=== PATIENT | male | born 1970 | race Caucasian/White ===

== ENCOUNTER 2019-01-27 12:02 | Emergency (ER) | payer OTHER ==
[~2019-01-27] VITALS: Ht 172.7 cm; Wt 61.2 kg
--- NOTE | 2019-01-27 12:20 | NUR ---
Dr Santos at the bedside for MSE.
[2019-01-27] MEDS ORDERED: HYDROCODONE/APAP 5-325MG TABLET ONE (12:26)
[2019-01-27] MEDS ORDERED: HYDROCODONE/APAP 5-325MG TABLET PO ONE (12:30)
[2019-01-27] MEDS ORDERED: TDAP DIPH,PERTUSS,TET VAC/PF 0.5 ML DISP.SYRIN IM ONE ×2 (12:45→13:11)
[2019-01-27] MEDS ORDERED: NEOMY/BACITRA/POLYMYXIN B OINT UD PACKET TP ONE ×2 (12:45→13:12)
[2019-01-27] MEDS ORDERED: LIDOCAINE 1%-EPI 1:100,000 20 ML VIAL IJ ONE (12:45)
--- NOTE | 2019-01-27 13:40 | NUR ---
Inncontinent care provided. Pt has no c/o pain.
--- NOTE | 2019-01-27 13:43 | NUR ---
Placed a call to [facility] for pt's transfer. ETA 45 min, and trip #[id number].
--- NOTE | 2019-01-27 14:29 | NUR ---
Patient is resting comfortably in bed with eyes closed, NAD noted.
[2019-01-27 15:34] VITALS: BP 130/80
--- NOTE | 2019-01-27 15:39 | NUR ---
Report given to application chemist transfering Pt. All belongings sent w/ pt, including pt's wheelchair. Pt left ER in stable condition.
== END 2019-01-27 15:51 | disposition home or self-care (01) ==
LOC: ER 12:02
DX: S01.112A Laceration without foreign body of left eyelid and periocular area, initial encounter (principal); W22.8XXA Striking against or struck by other objects, initial encounter; Y93.89 Activity, other specified; Y92.89 Other specified places as the place of occurrence of the external cause; Y99.8 Other external cause status
CPT/HCPCS: 90715; A4663

== ENCOUNTER 2020-10-09 12:17 | Emergency (ER) | payer MEDICAID, OTHER ==
[~2020-10-09] VITALS: Ht 167.6 cm; Wt 67.1 kg
--- NOTE | 2020-10-09 12:24 | NUR ---
Patient brought in by [facility] for altered mental status, patient stated that it is the year 2019 but doesnt know the month but is oriented to self
--- NOTE | 2020-10-09 12:28 | NUR ---
UNABLE TO OBTAIN PT's HOME MEDICATION NAMES AND DOSAGES.
--- NOTE | 2020-10-09 12:48 | NUR ---
Patient taken to radiology department for CT
[2020-10-09 12:57] LABS: *BLOOD, URINE NEGATIVE (NEGATIVE); *CLARITY,URINE SLIGHTLY CLOUDY (CLEAR); *COLOR,URINE AMBER (YELLOW); *KETONES,URINE TRACE (NEGATIVE); LEUKOCYTE ESTERASE ,URINE NEGATIVE (NEGATIVE); NITRITE, URINE NEGATIVE (NEGATIVE); UGLUCOSE NEGATIVE (NEGATIVE)
[2020-10-09 13:04] LABS: *BILIRUBIN,URIN 2+ (NEGATIVE)
[2020-10-09 13:07] LABS: MUCUS,URINE MODERATE /LPF (0-FEW)
[2020-10-09 13:09] LABS: BACTERIA,URINE NONE SEEN /HPF (NONE SEEN); RBC,URINE NONE SEEN /HPF (0-3); SQUAMOUS EPITHELIAL CELL,UR FEW /HPF (NONE SEEN); WBC,URINE NONE SEEN /HPF (0-3)
[2020-10-09 13:46] LABS: BILIRUBIN,DIRECT 0.3 mg/dL (0.0-0.2); BILIRUBIN,TOTAL 1.4 mg/dL (0.2-1.0); CREATININE 1.1 mg/dL (0.6-1.3); POTASSIUM 3.9 mmol/L (3.5-5.1); TOTAL PROTEIN, SERUM 7.8 g/dL (6.4-8.2)
[2020-10-09 13:51] LABS: HEMATOCRIT 48.4 % (36.7-47.1); MEAN CORPUSCULAR HEMOGLOBIN 27.8 uug (23.8-33.4); MEAN CORPUSCULAR VOLUME 85.5 fL (73.0-96.2); PLATELET COUNT (AUTO) 293 K/uL (152-348)
--- NOTE | 2020-10-09 14:03 | NUR ---
Spinal tap procedure done by MD Valenzuela, patient tolerated procedure well
[2020-10-09] MEDS ORDERED: IV NORMAL SALINE 1000 ML BAG IV ONE (14:15)
[2020-10-09] MEDS ORDERED: VANCOMYCIN IV 1,000 MG in IV DEXTROSE 5% 250 ML IV ONE (14:30)
[2020-10-09] MEDS ORDERED: CEFTRIAXONE 2 G in IV DEXTROSE 5% 100 ML IV ONE (14:30)
[2020-10-09] MEDS ORDERED: VANCOMYCIN IV 200 ML ONE (15:14)
[2020-10-09] MEDS ORDERED: CEFTRIAXONE 1 G VIAL ONE (15:14)
[2020-10-09 16:08] LABS: CSF PROTEIN 52 mg/dL (15-45)
[2020-10-09 16:13] LABS: CSF GLUCOSE 79 mg/dL (40-70)
--- NOTE | 2020-10-09 16:25 | NUR ---
CSF glucose sample noted at 79, MD Valenzuela notified
--- NOTE | 2020-10-09 17:26 | NUR ---
Patient had medium BM, changed at this time, awaiting [facility]al return [facility]
[2020-10-09] MEDS ORDERED: ONDANSETRON 4 MG/2 ML VIAL ONE (19:28)
--- NOTE | 2020-10-09 19:30 | NUR ---
Patient noted to be vomiting. 4mg Zofran administered.
[2020-10-09] MEDS ORDERED: PROCHLORPERAZINE EDISYLATE 10 MG/2 ML VIAL ONE (19:45)
[2020-10-09] MEDS ORDERED: PROCHLORPERAZINE EDISYLATE 10 MG/2 ML VIAL IV ONE (19:45)
--- NOTE | 2020-10-09 20:00 | NUR ---
Nausea/Emesis not improved - 10mg Compazine administered.
--- NOTE | 2020-10-09 20:00 | NUR ---
Patients emesis is [place] +. made aware.
[2020-10-09] MEDS ORDERED: ONDANSETRON 4 MG/2 ML VIAL IV ONE (21:00)
--- NOTE | 2020-10-09 21:40 | NUR ---
Report given to Abbie RIVERS at [facility]. Patient to be picked up by [facility] and transferred to [facility] Room 644F
[2020-10-09] MEDS ORDERED: PANTOPRAZOLE SODIUM 40 MG VIAL IV ONE (22:00)
[2020-10-09] MEDS ORDERED: IV NS 1000 ML 1,000 ML IV ONE (22:00)
[2020-10-09] MEDS ORDERED: PANTOPRAZOLE SODIUM 40 MG VIAL ONE (22:13)
--- NOTE | 2020-10-09 22:45 | NUR ---
Patient picked up by [facility] - Confirmed drop off location of [facility] Room 207B under the care of SILVESTRE Leiva. All belongings with patient. Pertinent info provided. Patient stable. VSS.
== END 2020-10-09 23:00 | disposition short-term general hospital (02) ==
LOC: ER 12:17
DX: R41.82 Altered mental status, unspecified (principal); R91.8 Other nonspecific abnormal finding of lung field; Z20.822 Contact with and (suspected) exposure to COVID-19; G40.909 Epilepsy, unspecified, not intractable, without status epilepticus; G83.9 Paralytic syndrome, unspecified; R94.31 Abnormal electrocardiogram [ECG] [EKG]
CPT/HCPCS: 36415; 62270; 70450; 71045; 80048; 80076; 81001; 82945; 83605; 83690; 84157; 84484; 85025; 85730; 87040 ×2; 87070; 87086; 87205; 87426; 89051; 93005; 96361; 96365; 96366; 96368; 96375; 99291; C9113; J0696; J0780; J2405; J3370; J7060; 70030-TC; A4663; J7030